=== PATIENT | female | born 1980 | race Caucasian/White ===

== ENCOUNTER 2022-09-22 11:18 | Outpatient (CLI) | payer OTHER, SELFPAY ==
[2022-09-22 22:13] LABS: Albumin* 4.5 g/dL (3.3-5.0)
[2022-09-22 22:16] LABS: Alkaline Phosphatase* 35 U/L (40-150); Aspartate Amino Transferase* 18 U/L (12-35); Bilirubin Direct* 0.1 mg/dL (0.0-0.5); Bilirubin Total* 0.6 mg/dL (0.1-1.5)
[2022-09-22 22:17] LABS: Alanine Aminotransferase* 10 U/L (4-35)
== END 2022-09-22 11:19 | disposition home or self-care (01) ==
LOC: LKVREF 11:19
PROVIDERS: PCP Physician Assistant Medical; Visit Provider Physician Assistant Medical
DX: B35.1 Tinea unguium (principal)
CPT/HCPCS: 80076

== ENCOUNTER 2022-11-14 23:03 | Outpatient (CLI) | payer OTHER, SELFPAY ==
[2022-11-14 12:35] LABS: Albumin* 4.6 g/dL (3.3-5.0)
[2022-11-14 12:38] LABS: Bilirubin Direct* 0.1 mg/dL (0.0-0.5); Bilirubin Total* 0.7 mg/dL (0.1-1.5)
[2022-11-14 12:39] LABS: Alanine Aminotransferase* 13 U/L (4-35); Alkaline Phosphatase* 32 U/L (40-150); Aspartate Amino Transferase* 18 U/L (12-35)
== END 2022-11-14 23:04 | disposition home or self-care (01) ==
PROVIDERS: PCP Physician Assistant Medical; Visit Provider Physician Assistant Medical
DX: B35.1 Tinea unguium (principal)
CPT/HCPCS: 80076